=== PATIENT | female | born 1945 | race Asian ===

== ENCOUNTER 2020-01-03 06:10 | Day surgery (SDC) | payer BC ==
[~2020-01-03] VITALS: Ht 160 cm; Wt 47.2 kg
[~2020-01-03 06:10] MED LIST: EMPA10TA PO; LOSA50TA64 PO; METF-444 PO; SITA1TAB2 PO
[2020-01-03] MEDS ORDERED: SODIUM CHLORIDE 0.9% 1000ML 1,000 ML IV ONE (06:24)
[2020-01-03 06:35] VITALS: BP 125/69
[2020-01-03] MEDS ORDERED: PROPOFOL 10 MG/ML 20ML VIAL IV ONE ×2 (07:35→07:54)
[2020-01-03] MEDS ORDERED: LIDOCAINE HCL 2% 20ML ONE (07:36)
[2020-01-03] MEDS ORDERED: LEVOFLOXACIN 500 MG/D5W 100 ML 100 ML ONE (07:46)
[2020-01-03 08:15] VITALS: BP 127/74
[2020-01-03 08:20] VITALS: BP 112/76
[2020-01-03 08:24] VITALS: BP 117/76
[2020-01-03 08:30] VITALS: BP 125/72
[2020-01-03 08:35] VITALS: BP 129/70
== END 2020-01-03 08:45 | disposition home or self-care (01) ==
LOC: ENDO 06:10 → DAH 06:10 → ENDO 08:45
PROVIDERS: ATTEND Internal Medicine
DX: K86.89 Other specified diseases of pancreas (principal); K31.89 Other diseases of stomach and duodenum; K76.89 Other specified diseases of liver; E78.2 Mixed hyperlipidemia; I10 Essential (primary) hypertension; E11.9 Type 2 diabetes mellitus without complications; Z90.49 Acquired absence of other specified parts of digestive tract; Z79.4 Long term (current) use of insulin; Z79.84 Long term (current) use of oral hypoglycemic drugs; Z79.899 Other long term (current) drug therapy; Z83.3 Family history of diabetes mellitus
CPT/HCPCS: 36415; 43238; 82150; 82378; 82948 ×2; A4215; A4221; A4222; A4223; A4606; A4620; A4663; J1956; J2704 ×2; J3490; J7030